=== PATIENT | female | born 1990 | race African-American/Black ===

== ENCOUNTER 2017-01-16 10:35 | Inpatient (IN) | payer OTHER ==
[2017-01-16] MEDS ORDERED: AMPICILLIN - 100 ML IVPB ONE (16:05)
[2017-01-16] MEDS ORDERED: DEXTROSE 5%-LACTATED RINGERS 1,000 ML IV SCH (17:00)
[2017-01-16 17:47] LABS: BASOPHIL 0.2 % (0-2.0); EOSINOPHIL 0.9 % (0-4.5); MCH 29.7 pg (25.7-33.7); MCHC 32.6 g/dl (32.0-36.0); MEAN CELL VOLUME 90.9 fl (80-96); MEAN PLT VOLUME 7.7 fl (7.5-11.1); NEUTROPHILS 65.6 % (42.8-82.8); PLATELET COUNT 291 K/MM3 (134-434); RDW 13.5 % (11.6-15.6); WHITE BLOOD COUNT 10.3 K/mm3 (4.0-10.0)
--- NOTE | 2017-01-16 18:09 | HP ---
Past Medical History - Primary Care Physician PCP:: Alonzo Middleton - Admission Chief Complaint: 39.4 weeks, labor History of Present Illness: 26 yo f edc by sono 01/19/17 39.4 weeks, in labor, cx 2 cm 75 vx -3 mi, fhr cat 1 , contraction irregular History Source: Patient Limitations to Obtaining History: No Limitations - Past Medical History ...: 2 ...Para: 1 ...Term: 1 ...LMP: 04/29/16 ... Weeks Gestation by Dates: 37.3 ...EDC by Dates: 02/03/17 ...EDC by Sono: 01/19/17 Additional OB History: 2013 no complication Heme/Onc: Yes: Anemia - Past Surgical History Past Surgical History: Yes: None Hx Myomectomy: No Hx Transabdominal Cerclage: No - Smoking History Smoking history: Never smoked Have you smoked in the past 12 months: No - Alcohol/Substance Use Hx Alcohol Use: No History of Substance Use: reports: None - Social History History of Recent Travel: No Home Medications - Allergies Allergies/Adverse Reactions: Allergies Allergy/AdvReac Type Severity Reaction Status Date / Time No Known Allergies Allergy Verified 08/12/14 13:19 - Home Medications Home Medications: Ambulatory Orders Ferrous Sulfate [Feosol] 325 mg PO BID 08/12/14 Vit No.130/Iron/FA [ Tablet] 1 each PO DAILY 08/12/14 Review of Systems - Review of Systems Constitutional: reports: No Symptoms Eyes: reports: No Symptoms HENT: reports: No Symptoms Neck: reports: No Symptoms Cardiovascular: reports: No Symptoms Respiratory: reports: No Symptoms Gastrointestinal: reports: No Symptoms Genitourinary: reports: No Symptoms Breasts: reports: No Symptoms Reported Musculoskeletal: reports: No Symptoms Neurological: reports: No Symptoms Endocrine: reports: No Symptoms Hematology/Lymphatic: reports: No Symptoms Psychiatric: reports: No Symptoms Physical Exam - Maternity Vital Signs: Vital Signs Temperature 97.8 F 01/16/17 17:00 Pulse Rate 88 01/16/17 18:00 Respiratory Rate 20 01/16/17 18:00 Blood Pressure 134/80 01/16/17 18:00 O2 Sat by Pulse Oximetry (%) Constitutional: Yes: Well Nourished, No Distress, Calm Eyes: Yes: WNL, Conjunctiva Clear, EOM Intact HENT: Yes: WNL, Atraumatic, Normocephalic Neck: Yes: WNL, Supple, Trachea Midline Cardiovascular: Yes: WNL, Regular Rate and Rhythm Breast(s): Yes: WNL - Abdominal Exam/OB Fundal Height: 40 Number of Fetuses: Single Presentation: Vertex Contractions: Yes Regularity: Irregular Intensity: Mod/Strong Monitor Mode: External Heart Rate Location: [facility] Category: I Accelerations: Non-Uniform Decelerations: None - Vaginal Exam/OB Vaginal Bleediing: No Speculum Exam: No Dilatation (cm): 2 cm Effacement (%): 75 Amniotic Membrane Status: Bulging Presentation: Vertex/Position Station: -3 - Physical Exam Musculoskeletal: Yes: WNL Edema: Yes Edema: LLE: Trace, RLE: Trace Deep Tendon Reflex Grade: Normal +2 - Labs Lab Results: CBC, BMP 01/16/17 16:40 Hemorrhage Risk Assessment - Risk Factors Medium Risk Factors: Yes: Obesity (BMI >40) Risk Score: 1 Risk Level: Medium Risk Problem List - Problems (1) 39 weeks gestation of Code(s): Z3A.39 - 39 WEEKS GESTATION OF (2) Labor established Code(s): MAL9656 - Assessment/Plan plan admit , fhm, if contraction not regular advised pitocin stimulation
[2017-01-16] MEDS ORDERED: BUTORPHANOL TARTRATE 1 MG/ML VIAL IVPUSH ONE (18:10)
[2017-01-16 18:12] LABS: INR 0.88 (0.82-1.09); PROTHROMBIN TIME (PATIENT) 9.7 SEC (9.98-11.88)
[2017-01-16 18:41] LABS: COCKROFT - GAULT 208.913; CREATININE 0.6 mg/dL (0.55-1.02)
[2017-01-16] MEDS: AMPICILLIN - 100 ML IVPB SCH (20:15)
[2017-01-17] MEDS: AMPICILLIN - 100 ML IVPB SCH (00:15)
[2017-01-17] MEDS ORDERED: AMPICILLIN - 100 ML IVPB SCH (05:00)
[2017-01-17] MEDS ORDERED: ELECTROLYTE-148 SOLN 1,000 ML IV SCH (08:30)
--- NOTE | 2017-01-17 08:48 | PN ---
Progress Note (short form) - Note Progress Note: 820 am srom,, meconium amniotic \, variable decel cx 3 cm 80 vx -3 , advised c/s Problem List - Problems (1) 39 weeks gestation of Code(s): Z3A.39 - 39 WEEKS GESTATION OF (2) Labor established Code(s): YBG8452 -
[2017-01-17 10:22] LABS: ARTERIAL BLOOD GAS BASE EXCESS -1.3 meq/l (-2-2); ARTERIAL BLOOD GAS HCO3 26.4 meq/L (22-26); ARTERIAL BLOOD GAS pH 7.27 (7.35-7.45)
[2017-01-17 10:25] LABS: ARTERIAL BLOOD GAS BASE EXCESS -2.1 meq/l (-2-2); ARTERIAL BLOOD GAS HCO3 24.4 meq/L (22-26); ARTERIAL BLOOD GAS pH 7.31 (7.35-7.45)
[2017-01-17 10:28] LABS: PT. ON O2? NO
[2017-01-17 10:29] LABS: ARTERIAL BLD GAS O2 SATURATION 14.2 % (90-98.9); ARTERIAL BLOOD GAS PO2 12.2 mmHg (80-100)
[2017-01-17 10:30] LABS: ARTERIAL BLOOD GAS PO2 35.9 mmHg (80-100); PT. ON O2? NO
[2017-01-17 10:31] LABS: ARTERIAL BLD GAS O2 SATURATION 73.2 % (90-98.9)
[2017-01-17] MEDS ORDERED: ONDANSETRON 4 MG/2 ML VIAL IVPB PRN (10:41)
[2017-01-17] MEDS ORDERED: diphenhydrAMINE HCL 25 MG CAPSULE (FP) PO PRN (10:47)
[2017-01-17] MEDS ORDERED: METHYLERGONOVINE MALEATE 0.2 MG/1 ML AMP IM PRN (10:47)
[2017-01-17] MEDS ORDERED: WITCH HAZEL 50% (TUCKS) 40 PAD/JAR PAD TP PRN (10:47)
[2017-01-17] MEDS ORDERED: oxyCODONE HCL 5 MG TABLET PO PRN ×2 (10:47)
[2017-01-17] MEDS ORDERED: BENZOCAINE 20% 57 GM BOTTLE TP PRN (10:47)
[2017-01-17] MEDS ORDERED: IBUPROFEN 600 MG TABLET (FP) PO PRN (10:47)
[2017-01-17] MEDS ORDERED: BENZOCAINE 28 GM HEMORRHOIDAL OINTMENT PR PRN (10:47)
[2017-01-17] MEDS: IBUPROFEN 800 MG/8 ML IJ IVPB PRN ×2 (10:50→20:49)
[2017-01-17] MEDS ORDERED: DEXTROSE 5%-LACTATED RINGERS 1,000 ML IV SCH (11:00)
[2017-01-17] MEDS ORDERED: OXYTOCIN 20 UNITS in 0.9% NS 1,000 ML IV SCH (11:00)
[2017-01-17 11:47] LABS: ARTERIAL BLOOD GAS BASE EXCESS -7.9 meq/l (-2-2)
[2017-01-17 11:49] LABS: PT. ON O2? NO
[2017-01-17 11:50] LABS: ARTERIAL BLOOD GAS PO2 19.1 mmHg (80-100); ARTERIAL BLOOD GAS pH 7.19 (7.35-7.45)
[2017-01-17] MEDS ORDERED: ACETAMINOPHEN 1000 MG/100 ML VIAL (NON FORMULARY) IVPB PRN (11:50)
[2017-01-17 11:55] VITALS: BMI 34.7
[2017-01-17] MEDS ORDERED: CEFAZOLIN (PRE-DOCKED) 50 ML IVPB ONE ×2 (17:39→20:16)
[2017-01-17] MEDS: CEFAZOLIN 1 GM/D5W 50 ML IVPB SCH (17:46)
[2017-01-17] MEDS: FERROUS SO4 325 MG TABLET (FP) PO SCH (21:08)
[2017-01-18] MEDS: CEFAZOLIN 1 GM/D5W 50 ML IVPB SCH (01:08)
[2017-01-18] MEDS: IBUPROFEN 600 MG TABLET (FP) PO PRN ×3 (07:25→21:15)
[2017-01-18] MEDS: ACETAMINOPHEN 325 MG TABLET (FP) PO PRN ×3 (07:26→21:16)
[2017-01-18] MEDS: SIMETHICONE 80 MG TAB.CHEW (FP) PO PRN ×3 (07:27→21:15)
[2017-01-18 08:18] LABS: BASOPHIL 0.6 % (0-2.0); EOSINOPHIL 0.8 % (0-4.5); MCH 30.7 pg (25.7-33.7); MEAN PLT VOLUME 7.8 fl (7.5-11.1); NEUTROPHILS 66.1 % (42.8-82.8); PLATELET COUNT 215 K/MM3 (134-434); RDW 13.7 % (11.6-15.6); WHITE BLOOD COUNT 12.6 K/mm3 (4.0-10.0)
[2017-01-18] MEDS: FERROUS SO4 325 MG TABLET (FP) PO SCH ×2 (09:23→21:15)
--- NOTE | 2017-01-18 09:23 | PN ---
Progress Note (short form) - Note Progress Note: pod 1 doing well, no excess vaginal bleeding , Current Medications Generic Name Dose Route Start Last Admin Trade Name Freq PRN Reason Stop Dose Admin Acetaminophen 650 mg 01/17/17 10:41 01/18/17 07:26 Tylenol - PO 650 mg Q4H PRN Administration FEVER OR PAIN Benzocaine 1 spray 01/17/17 10:47 Americaine 20% Tunas - TP PRN PRN PAIN Benzocaine 1 applic 01/17/17 10:47 Americaine Ointment - MS PRN PRN PAIN Bisacodyl 10 mg 01/18/17 10:47 Dulcolax Suppository - RC PRN PRN CONSTIPATION Diphenhydramine HCl 25 mg 01/17/17 10:41 Benadryl Injection - IVPUSH Q4H PRN Pruritis Diphenhydramine HCl 25 mg 01/17/17 10:47 Benadryl - PO Q8H PRN FOR ITCHING Ferrous Sulfate 325 mg 01/17/17 22:00 01/17/17 21:08 Feosol - PO Not Given BID RAMANDEEP Dextrose/Lactated Ringer's 1,000 mls @ 125 mls/hr 01/17/17 11:00 D5-Lr - IV ASDIR RAMANDEEP Ibuprofen 600 mg 01/17/17 10:41 01/18/17 07:25 Motrin - PO 600 mg Q4H PRN Administration PAIN Ibuprofen 600 mg 01/17/17 10:47 Motrin - PO Q4H PRN PAIN Methylergonovine Maleate 0.2 mg 01/17/17 10:47 Methergine Injection - IM Q4H PRN EXCESSIVE BLEEDING Oxycodone HCl 5 mg 01/17/17 10:47 Roxicodone - PO Q4H PRN PAIN LEVEL 1-5 Oxycodone HCl 10 mg 01/17/17 10:47 Roxicodone - PO Q4H PRN PAIN LEVEL 6-10 Multivit/Folic Acid/Iron 1 tab 01/18/17 10:00 Vitamins (Sjr) - PO DAILY RAMANDEEP Senna/Docusate Sodium 1 tablet 01/19/17 22:00 Pericolace - PO HS PRN CONSTIPATION Simethicone 80 mg 01/17/17 10:47 01/18/17 07:27 Mylicon - PO 80 mg Q4H PRN Administration GAS Witch Sheri/Glycerin 1 pad 01/17/17 10:47 Tucks Pads - TP PRN PRN PAIN CBC, BMP 01/18/17 07:00 01/16/17 16:40 abdomen soft, no distension, no cva incision dry, clean no calf tenderness no excess vaginal bleeding plan ambulate, advance diet, iron, vit Problem List - Problems (1) 39 weeks gestation of Code(s): Z3A.39 - 39 WEEKS GESTATION OF (2) Labor established Code(s): EWG4084 -
[2017-01-18] MEDS: PRENATAL VITAMINS W/ FOLIC ACID TABLET (FP) PO SCH (09:24)
[2017-01-18] MEDS ORDERED: BISACODYL 10 MG SUPP.RECT RC PRN (10:47)
--- NOTE | 2017-01-18 11:11 | PN ---
Progress Note (short form) - Note Progress Note: Anesthesia post op note. S/P in spinal, POD#1. Pat seen and examined, VSS. No apparentpost anesthesia complications. Signed off.
[2017-01-18] MEDS: SENNOSIDES/DOCUSATE COMBO (SENNA PLUS) TABLET (UD) PO PRN (21:15)
--- NOTE | 2017-01-18 23:53 | OP ---
DATE OF OPERATION: 01/17/2017 PREOPERATIVE DIAGNOSIS: Term labor, ruptured membranes, meconium amniotic fluid, and variable deceleration. POSTOPERATIVE DIAGNOSIS: Term labor, ruptured membranes, meconium amniotic fluid, and variable deceleration. PROCEDURE: Primary low segment transverse section. SURGEON: Petr Juan M.D. MARKETING SALES SUPERVISOR: ANESTHESIA: Spinal. ANESTHESIOLOGIST: Shar Lucero M.D. ESTIMATED BLOOD LOSS: 500 mL. OPERATION: Patient was taken to operating room with adequate epidural anesthesia. Abdomen and perineum were prepped and draped. Pfannenstiel abdominal skin incision was made. Abdominal wall was cut layer by layer until the peritoneum was exposed and incised. Upon entering the abdominal cavity, the lower uterine segment was identified, and uterovesical fold of the peritoneum was established. The bladder was pushed down. Then with the lower blade of the Marlin retractor in the pelvis, a low transverse uterine incision was made. Amniotic sac was entered. Meconium amniotic fluid. Head delivered. Nasopharynx was suctioned. A live baby was delivered without any difficulty. Placenta was delivered manually. Uterine cavity was cleaned of all remaining tissue. Uterine incision was closed in 2 layers, the 1st layer with 0 Biosyn continuous suture, the 2nd layer with 0 Biosyn imbricating the 1st layer. Bladder flap was closed with 0 Biosyn continuous suture. Both tubes and ovaries were checked and were normal. No active bleeding was seen. All the lap, sponge, and instrument counts were correct. Peritoneum was closed with 0 Biosyn continuous suture. Muscles were brought together interrupted suture with 0 Biosyn. Fascia was closed with 0 Biosyn continuous sutures. Subcutaneous fat with interrupted sutures 0 Biosyn, and the skin was closed with ghulam. The patient tolerated the procedure well and left the OR in good condition. PETR JUAN M.D. [id number]
--- NOTE | 2017-01-19 08:06 | PN ---
Progress Note (short form) - Note Progress Note: pod 2 doing well, ambulating, passing gas CBC, BMP 01/18/17 07:00 01/16/17 16:40 Last Vital Signs Temp Pulse Resp BP Pulse Ox 98.1 F 96 H 20 131/84 01/18/17 22:00 01/18/17 22:00 01/18/17 22:00 01/18/17 22:00 abdomen soft, no distension, no cav incision dry, clean no calf tenderness plan ambulate, cbcin am iron vit Problem List - Problems (1) 39 weeks gestation of Code(s): Z3A.39 - 39 WEEKS GESTATION OF (2) Labor established Code(s): HZS5822 -
[2017-01-19] MEDS: PRENATAL VITAMINS W/ FOLIC ACID TABLET (FP) PO SCH (09:26)
[2017-01-19] MEDS: FERROUS SO4 325 MG TABLET (FP) PO SCH ×2 (09:26→21:14)
[2017-01-19] MEDS: SIMETHICONE 80 MG TAB.CHEW (FP) PO PRN ×2 (13:26→20:25)
[2017-01-19] MEDS: ACETAMINOPHEN 325 MG TABLET (FP) PO PRN ×2 (13:26→20:26)
[2017-01-19] MEDS: IBUPROFEN 600 MG TABLET (FP) PO PRN ×2 (13:27→20:25)
[2017-01-19] MEDS: SENNOSIDES/DOCUSATE COMBO (SENNA PLUS) TABLET (UD) PO PRN (20:25)
--- NOTE | 2017-01-20 05:36 | PN ---
Post Progress Note - Subjective Subjective: 26 yo Para 3, status post seen and evaluated. Doing well, no complaints. Type of Delivery: Primary C/S Vital Signs: Vital Signs Temperature 98.0 F 01/19/17 20:28 Pulse Rate 92 H 01/19/17 20:28 Respiratory Rate 20 01/19/17 20:28 Blood Pressure 119/74 01/19/17 20:28 O2 Sat by Pulse Oximetry (%) Breast Exam: Yes: Soft Uterus: Yes: Fundus Firm Incision: Yes: [place] intact Abdomen/GI: Yes: Abdomen soft, Tolerating PO Lochia: Yes: Rubra Lochia, amount: Moderate Extremities: Yes: Calves non-tender Perineum: Yes: Intact Activity: Ambulating - Labs Labs: CBC WBC 12.6 K/mm3 (4.0-10.0) H 01/18/17 07:00 RBC 3.17 M/mm3 (3.60-5.2) L D 01/18/17 07:00 Hgb 9.7 GM/dL (10.7-15.3) L D 01/18/17 07:00 Hct 29.5 % (32.4-45.2) L D 01/18/17 07:00 MCV 93.0 fl (80-96) 01/18/17 07:00 MCHC 33.0 g/dl (32.0-36.0) 01/18/17 07:00 RDW 13.7 % (11.6-15.6) 01/18/17 07:00 Plt Count 215 K/MM3 (134-434) D 01/18/17 07:00 MPV 7.8 fl (7.5-11.1) 01/18/17 07:00 Neutrophils % 66.1 % (42.8-82.8) 01/18/17 07:00 Lymphocytes % 23.8 % (8-40) 01/18/17 07:00 Monocytes % 8.7 % (3.8-10.2) 01/18/17 07:00 Eosinophils % 0.8 % (0-4.5) 01/18/17 07:00 Basophils % 0.6 % (0-2.0) 01/18/17 07:00 Problem List - Problems (1) Status post primary low transverse section Code(s): Z98.891 - HISTORY OF UTERINE SCAR FROM PREVIOUS SURGERY Assessment/Plan Status post Stable Continue routine Post op care
[2017-01-20 08:34] LABS: BASOPHIL 0.6 % (0-2.0); EOSINOPHIL 2.3 % (0-4.5); MCH 30.6 pg (25.7-33.7); MCHC 33.2 g/dl (32.0-36.0); MEAN CELL VOLUME 92.2 fl (80-96); MEAN PLT VOLUME 6.9 fl (7.5-11.1); NEUTROPHILS 57.2 % (42.8-82.8); PLATELET COUNT 265 K/MM3 (134-434); WHITE BLOOD COUNT 8.5 K/mm3 (4.0-10.0)
[2017-01-20] MEDS: PRENATAL VITAMINS W/ FOLIC ACID TABLET (FP) PO SCH (09:49)
[2017-01-20] MEDS: FERROUS SO4 325 MG TABLET (FP) PO SCH ×2 (09:49→21:45)
[2017-01-20] MEDS: IBUPROFEN 600 MG TABLET (FP) PO PRN (16:51)
[2017-01-20] MEDS: ACETAMINOPHEN 325 MG TABLET (FP) PO PRN (16:52)
[2017-01-20] MEDS: SIMETHICONE 80 MG TAB.CHEW (FP) PO PRN (16:53)
--- NOTE | 2017-01-21 08:23 | PN ---
Post Progress Note - Subjective Subjective: no complain Post Day: 4 Type of Delivery: Primary C/S Vital Signs: Vital Signs Temperature 97.7 F 01/20/17 22:00 Pulse Rate 87 01/20/17 22:00 Respiratory Rate 20 01/20/17 22:00 Blood Pressure 135/88 01/20/17 22:00 O2 Sat by Pulse Oximetry (%) Breast Exam: Yes: Soft, Other (attempting BF ). No: Engorged Uterus: Yes: Fundus Firm, Fundus below umbilicus, Non-tender Incision: No: [place] intact (ghulam removed , steri strips applied ), Redness , Oozing Abdomen/GI: Yes: Abdomen soft, Passing flatus, Tolerating PO (diet ). No: Abdominal Distention, Tender Lochia: Yes: Rubra Lochia, amount: Moderate Extremities: Yes: Calves non-tender, Edema Perineum: Yes: Intact Activity: Ambulating - Labs Labs: CBC WBC 8.5 K/mm3 (4.0-10.0) D 01/20/17 07:30 RBC 2.72 M/mm3 (3.60-5.2) L 01/20/17 07:30 Hgb 8.3 GM/dL (10.7-15.3) L D 01/20/17 07:30 Hct 25.1 % (32.4-45.2) L 01/20/17 07:30 MCV 92.2 fl (80-96) 01/20/17 07:30 MCHC 33.2 g/dl (32.0-36.0) 01/20/17 07:30 RDW 14.0 % (11.6-15.6) 01/20/17 07:30 Plt Count 265 K/MM3 (134-434) D 01/20/17 07:30 MPV 6.9 fl (7.5-11.1) L D 01/20/17 07:30 Neutrophils % 57.2 % (42.8-82.8) 01/20/17 07:30 Lymphocytes % 32.8 % (8-40) D 01/20/17 07:30 Monocytes % 7.1 % (3.8-10.2) 01/20/17 07:30 Eosinophils % 2.3 % (0-4.5) D 01/20/17 07:30 Basophils % 0.6 % (0-2.0) 01/20/17 07:30 Assessment/Plan anemia s/p c/section day #4 stable plan anemia counselled discharge today
[2017-01-21 08:49] VITALS: BP 127/86; PULSE 90; TEMP 98.2
[2017-01-21] MEDS: ACETAMINOPHEN 325 MG TABLET (FP) PO PRN (09:20)
[2017-01-21] MEDS: FERROUS SO4 325 MG TABLET (FP) PO SCH (09:20)
[2017-01-21] MEDS: PRENATAL VITAMINS W/ FOLIC ACID TABLET (FP) PO SCH (09:20)
[2017-01-21] MEDS: IBUPROFEN 600 MG TABLET (FP) PO PRN (09:21)
--- NOTE | 2017-01-21 09:49 | DS ---
Physical Exam-TOOL CHECKER Vital Signs: Vital Signs Temperature 98.2 F 01/21/17 08:46 Pulse Rate 90 01/21/17 08:46 Respiratory Rate 20 01/21/17 08:46 Blood Pressure 127/86 01/21/17 08:46 O2 Sat by Pulse Oximetry (%) Constitutional: Yes: Well Nourished, No Distress, Calm Eyes: Yes: WNL, Conjunctiva Clear, EOM Intact HENT: Yes: WNL, Atraumatic, Normocephalic Neck: Yes: WNL, Supple, Trachea Midline Cardiovascular: Yes: WNL, Regular Rate and Rhythm Respiratory: Yes: WNL, Regular, CTA Bilaterally Gastrointestinal: Yes: WNL ...Rectal Exam: Yes: WNL Renal/: Yes: WNL External Genitalia: Yes: Normal ....Post : Yes: Uterus firm, Uterus non-tender, Slight lochia rubra Breast(s): Yes: WNL Musculoskeletal: Yes: WNL Extremities: Yes: WNL Edema: No Integumentary: Yes: WNL Wound/Incision: Yes: Clean/Dry, Well Approximated, [place] Removed Neurological: Yes: WNL, Alert, Oriented ...Motor Strength: WNL Psychiatric: Yes: WNL, Alert, Oriented Labs: CBC, BMP 01/20/17 07:30 01/16/17 16:40 Delivery - Delivery Section: Primary, Low Flap Transverse (no complication) Type of Anesthesia: Spinal Episiotomy/Laceration: None EBL (cc): 700 Delivery, Single - Stages of Labor Date 1st Stage Initiatied: 01/16/17 Time 1st Stage Initiated: 06:00 Date of Delivery: 01/17/17 Time of Delivery: 09:57 Time Placenta Delivered: 10:00 Placenta: Yes: Expressed - Condition of Dispatcher Electric Power/Photocopy Operator Present: Yes Name: Jocelyn Lau Gender: Male Weight: 8 lb 6 oz Position: Right, OP Total Hours ROM (Hrs/Mins): 1hr 33 min - 1 Minute Total Score: 9 5 Minutes Total Score: 9 - Jarrell Feeding Plan Initial Plan: Elected not to breastfeed exclusively throughout hospitalization Discharge Summary Reason For Visit: LABOR Current Active Problems Labor established (Acute) Status post primary low transverse section (Acute) Procedures: Principal: primary lst c/s - Instructions Diet, Activity, Other Instructions: Post Instructions DIET: Continue good diet high in protein, calcium, and iron rich foods. Drink at least eight (8) glasses of water daily in addition to other fluids. ___ Regular diet ___ LoCarb/Low Calorie Diet ___ Diabetic Diet MEDICATIONS: Continue vitamins and iron as previously directed. Motrin and Tylenol may be taken for minor discomfort. ACTIVITY: Mild to moderate exercise may be started in two (2) weeks. Take frequent rest periods. Resume normal activity after six (6) week check up. WOUND CARE OF OPERATIVE SITE: Continue use of perineal bottle until vaginal discharge stops. Keep area clean. Shower daily. Keep abdominal wound dry. Report any drainage or redness to physician. Tub baths, tampons and douches are not permitted for 6 weeks. ____ Breast feeding ___ Bottle feeding BREAST CARE: (For those that are not ): If engorgement occurs: Wear tight fitting bra. Take Tylenol or Motrin for pain. Apply cold packs (ice in bags to each breast ) FAMILY PLANNING: There are many control alternatives to pursue and they should be discussed at your first office visit. You may resume sexual activity after your six (6) week check up. (Remember, is not a contraceptive) NEXT PHYSICIAN APPOINTMENT: Be certain to call for a one (1) week appointment, unless otherwise directed. Call Clinic or got to Emergency Dept if you have any of the following: Heavy vaginal bleeding Painful urination Leg pain Unusual odor noted to vaginal bleeding High fever Red streaking noted on breast Referrals: Alonzo Middleton MD [Staff Physician] - - Home Medications Comprehensive Discharge Medication List: Ambulatory Orders Vit No.130/Iron/FA [ Tablet] 1 each PO DAILY 08/12/14 Acetaminophen [Tylenol .Regular Strength -] 650 mg PO Q4H PRN #0 tablet Ferrous Sulfate [Feosol] 325 mg PO BID #60 tab 01/21/17 Ibuprofen [Motrin -] 600 mg PO Q4H PRN #30 tablet 01/21/17
--- NOTE | 2017-01-23 14:47 | PATH ---
Surgical Pathology Report Patient Name: [facility] MARY [facility]. Rec. #: [id number] /Age/Gender: 1990 (Age: 26) / F Account: [id number] Location: [facility] OBS/POLISHER SAND Taken: 01/17/2017 Received: 01/19/2017 Reported: 01/23/2017 Physicians: Alonzo Middleton M.D. Specimen(s) Received PLACENTA Clinical History , 39.5 gestational weeks, GBS positive, 2014 C/section Final Diagnosis PLACENTA, DELIVERY: FOCALLY DISRUPTED, SMALL (<400 GM), THIRD TRIMESTER PLACENTA WITH MODERTE PREVILLOUS, PERIVILLOUS, AND PRECHORIONIC FIBRIN DEPOSITION, FOCAL CALCIFICATIONS, THREE VESSEL UMBILICAL CORD, AND UNREMARKABLE PLACENTAL MEMBRANES. Electronically Signed Juancarlos Dent M.D. Gross Description The specimen is received fresh, labeled "placenta" and is a 390 gram, 17.0 x 15.0 x 2.1 cm placenta with attached membranes and umbilical cord. The attached membranes are leon, translucent with focal opacities and insert marginally. The umbilical cord measures 23 cm in length and averages 1.3 cm in diameter. The cord inserts eccentrically, 2.5 cm to the nearest margin. No true knots or strictures are identified. Cut surface of the umbilical cord reveals 3 vessels. The surface is riddle-blue with fibrin deposition and appropriate caliber vessels. The maternal surface is red-brown with focal defects. Sectioning reveals red-brown, spongy parenchyma. No focal lesions are identified. Geological Science Teacher sections are submitted in three cassettes as follows: 1- membrane rolls and umbilical cord; 2-3- full thickness sections of placenta. /01/22/2017 [facility]01/22/2017
== END 2017-01-21 12:35 | disposition home or self-care (01) | DRG 540 ==
LOC: JDEL 10:35 → JLDR 16:00 → J3W 01-17 13:01
PROVIDERS: ADMIT Obstetrics & Gynecology; ATTEND Obstetrics & Gynecology
PROC: 10D00Z1 Extraction of Products of Conception, Low, Open Approach (ICD-10-PCS; principal; 2017-01-17)
DX: O76 Abnormality in fetal heart rate and rhythm complicating labor and delivery (principal); O77.0 Labor and delivery complicated by meconium in amniotic fluid; O99.02 Anemia complicating childbirth; D64.9 Anemia, unspecified; O99.214 Obesity complicating childbirth; Z3A.39 39 weeks gestation of pregnancy; Z37.0 Single live birth
CPT/HCPCS: 36415; 36600; 80048; 82803; 85025; 85610; 85730; 86593; 86850; 86900; 86901; 88307-TC

== ENCOUNTER 2019-10-13 19:00 | Emergency (ER) | payer OTHER ==
[2019-10-13 19:29] VITALS: PULSE 68; TEMP 98.4; BMI 34.1
--- NOTE | 2019-10-13 19:55 | PDOC ---
History of Present Illness - General Chief Complaint: Vaginal Bleeding Stated Complaint: VAGINAL BLEEDING Time Seen by Provider: 10/13/19 19:55 - History of Present Illness Initial Comments: 10/13/19 22:45 29 yo F, , presenting with vaginal bleeding. Patient had blood and urine tests confirming 1 week ago, believes that she is about 4 weeks along. Yesterday, patient had painless episode of scant vaginal bleeding which self- resolved, did not require pads. No bleeding today. Patient went to OBGYN today, who told her to come to the ER due to concern for vaginal bleeding yesterday. Patient currently entirely asymptomatic. Past History - Past Medical History Allergies/Adverse Reactions: Allergies Allergy/AdvReac Type Severity Reaction Status Date / Time No Known Allergies Allergy Verified 10/13/19 19:29 Home Medications: Ambulatory Orders NK [No Known Home Medication] 10/13/19 Asthma: No Cancer: No Cardiac Disorders: No COPD: No Diabetes: No HTN: No Seizures: No Thyroid Disease: No - Psycho Social/Smoking Cessation Hx Smoking History: Never smoked Have you smoked in the past 12 months: No Information on smoking cessation initiated: No Hx Alcohol Use: Yes Drug/Substance Use Hx: No Hx Substance Use Treatment: No Review of Systems - Review of Systems Comments:: 10/13/19 22:44 GENERAL/CONSTITUTIONAL: denies fever, chills, diaphoresis, generalized weakness , malaise, loss of appetite, weight change HEAD, EYES, EARS, NOSE AND THROAT: denies rhinorrhea, nasal congestion, throat pain, throat swelling, difficulty swallowing, mouth swelling, ear pain, eye pain , visual changes NEUROLOGIC: denies headache, focal weakness or paresthesias, dizziness, unsteady gait, seizure, mental status changes, bladder or bowel incontinence CARDIOVASCULAR: denies chest pain, syncope, palpitations, irregular heart rate, lightheadedness, peripheral edema RESPIRATORY: denies cough, shortness of breath, dyspnea with exertion, orthopnea , wheezing, stridor, hemoptysis GASTROINTESTINAL: denies abdominal pain, abdominal distension, nausea, vomiting , diarrhea, constipation, melena, hematochezia GENITOURINARY: endorses vaginal bleeding which has since resolved. Denies dysuria, frequency, urgency, hesitancy, hematuria, flank pain, genital pain MUSCULOSKELETAL: denies myalgia, arthralgia, joint swelling, back pain, neck pain SKIN: denies rash, itching, pallor HEMATOLOGIC/IMMUNOLOGIC: denies easy bleeding, easy bruising, lymphadenopathy, frequent infections ENDOCRINE: denies unexplained weight gain, unexplained weight loss, heat intolerance, cold intolerance PSYCHIATRIC: denies anxiety, depression, suicidal or homicidal ideation, hallucinations. *Physical Exam - Vital Signs Last Vital Signs Temp Pulse Resp BP Pulse Ox 98.4 F 68 14 106/62 100 10/13/19 19:26 10/13/19 19:26 10/13/19 19:26 10/13/19 19:26 10/13/19 19:26 - Physical Exam 10/13/19 22:44 GENERAL: Awake, alert, and fully oriented, in no acute distress. HEAD: Normal with no signs of trauma. EYES: Pupils equal, round and reactive to light, extraocular movements intact, sclera anicteric, conjunctiva clear. No lid lag. EARS, NOSE, THROAT: Ears normal, nares patent, oropharynx clear without exudates. Dry mucous membranes. NECK: Normal range of motion, supple without lymphadenopathy, JVD, or masses. LUNGS: Breath sounds equal, clear to auscultation bilaterally. No wheezes, and no crackles. No accessory muscle use. HEART: Regular rate and rhythm, normal S1 and S2 without murmur, rub or gallop. ABDOMEN: Soft, nontender, non-distended, normoactive bowel sounds, negative guarding, negative rebound, no masses. : fingertip os, meade-brown discharge consistent with old clots, no CMT or adnexal tenderness MUSCULOSKELETAL: Normal range of motion at all joints. No bony deformities or tenderness. No CVA tenderness. UPPER EXTREMITIES: 2+ pulses, warm, well-perfused. No cyanosis. No clubbing. Cap refill <2 seconds. No peripheral edema. LOWER EXTREMITIES: 2+ pulses, warm, well-perfused. No calf tenderness. No peripheral edema. NEUROLOGICAL: Cranial nerves II-XII intact. Normal speech. Normal gait. PSYCHIATRIC: Cooperative. Good eye contact. Appropriate mood and affect. SKIN: Warm, dry, normal turgor, no rashes or lesions noted. ED Treatment Course - LABORATORY CBC & Chemistry Diagram: 10/13/19 21:05 10/14/19 00:05 Medical Decision Making - Medical Decision Making 10/13/19 19:43 Concern for early , possible . - CBC, CMP - T+S - beta hCG - UA/UC/u preg - TVUS 10/14/19 00:47 TVUS with IUP at 6 weeks 2 days without cardiac movement, highly concerning for failed . Patient informed. Pending labs, will likely dc for further outpatient follow up. 10/14/19 02:07 Patient signed out to Dr[address] Chirinos. Will f/u beta-hCG, dc for further outpatient follow-up. Discharge - Discharge Information Problems reviewed: Yes Clinical Impression/Diagnosis: Condition: Stable Disposition: HOME - Follow up/Referral Referrals: Alonzo Middleton MD [Staff Physician] - Freddy Woods MD [Staff Physician] - - Patient Discharge Instructions Patient Printed Discharge Instructions: DI for Miscarriage Additional Instructions: You were seen with vaginal bleeding. Your imaging is concerning for a failed . It is very important that you follow up with OBGYN. The numbers are included in this paperwork. Additionally, follow up with your primary care doctor within one week. Return to the ED if you develop worsening symptoms. - Post Discharge Activity
[2019-10-13] MEDS ORDERED: ACETAMINOPHEN 1000 MG/100 ML VIAL (NON FORMULARY) IVPB ONE (21:26)
[2019-10-13 21:29] LABS: BASO % 1.3 % (0-2.0); EOS % 1.3 % (0-4.5); HEMATOCRIT 39.4 % (32.4-45.2); LYMPH % 42.8 % (8-40); MCH 30.6 pg (25.7-33.7); MCHC 33.1 g/dl (32.0-36.0); MEAN CELL VOLUME 92.5 fl (80-96); MEAN PLT VOLUME 7.7 fl (7.5-11.1); MONO % 5.4 % (3.8-10.2); NEUT % 49.2 % (42.8-82.8); PLATELET COUNT 333 K/MM3 (134-434); RBC 4.26 M/mm3 (3.60-5.2); WHITE BLOOD COUNT 9.2 K/mm3 (4.0-10.0)
[2019-10-13] MEDS ORDERED: ACETAMINOPHEN INJECTION 100 ML IVPB ONE (21:29)
--- NOTE | 2019-10-13 23:01 | PDOC ---
Documentation entered by Raven Vera SCRIBE, acting as scribe for Blanca Kwon DO. Blanca Kwon DO: This documentation has been prepared by the li, Raven Vera SCRIBE, under my direction and personally reviewed by me in its entirety. I confirm that the documentation accurately reflects all work, treatment, procedures, and medical decision making performed by me. Attending Attestation - Resident Resident Name: SilvaJuvencio - ED Attending Attestation I have performed the following: I have examined & evaluated the patient, The case was reviewed & discussed with the resident, I agree w/resident's findings & plan, Exceptions are as noted - HPI HPI: 10/13/19 22:01 Patient is a 29 year old 3-4 week female () with a significant medical history of anemia, who presents to the ED today with an episode of vaginal bleeding that happened yesterday. Patient said the bleeding was not associated with pain and stopped on its own. Patient stated the bleeding happened after she had intercourse. Patient quantified the bleeding as very little/less than a normal menstrual cycle. Patient has no current pain or bleeding. She states that she initially presented to her OBGYN who told her to come to the ED. - Physicial Exam PE: 10/13/19 22:07 Constitutional: Awake, alert, oriented. No acute distress. Head: Normocephalic. Atraumatic Eyes: PERRL. EOMI. Conjunctivae are not pale. ENT: Mucous membranes are moist and intact. Posterior pharynx without exudates or erythema. Uvula midline. Neck: Supple. Full ROM. No lymphadenopathy. Cardiovascular: Regular rate. Regular rhythm. S1, S2 regular. Distal pulses are 2+ and symmetric. Pulmonary/Chest: No evidence of respiratory distress. Clear to auscultation bilaterally No wheezing, rales or rhonchi. Abdominal: Soft and non-distended. There is no tenderness. No rebound, guarding or rigidity. No organomegaly. No palpable masses. Good bowel sounds. Back: No CVA tenderness. Musculoskeletal: No edema. No cyanosis. No clubbing. Full range of motion in all extremities. Nocalf tenderness. Radial/pedal pulses are intact and 2+ bilaterally Skin: Skin is warm and dry. No petechiae. No purpura. Neurological: Alert and oriented to person, place, and time. Cranial nerves II -XII are grossly intact. Normal speech. Strength is grossly symmetric. No sensory deficits. Psychiatric: Good eye contact. Normal interaction, affect and behavior. Pelvic: Refer to resident exam - Medical Decision Making 10/13/19 22:58 a/p: 29yo female at around 4 weeks gestation with vaginal bleeding yesterday after intercourse -pt without bleeding today -called her [facility] who told her to come to the ER for further eval -pt without abd pain -no dysuria -no other complaints -no prior episodes of complicated preg -will send labs, tvus -will monitor and reassess 10/14/19 00:38 Pelvic Ultrasound FINDINGS: Ultrasound :Uterus is anteverted and measures 8.3centimeters in length. There is a single live IUP with estimated gestational age of 6weeks and 2days. [place]-rump length is 5.4 mm in mean sac diameter is 11 mm. There is no cardiac motion. Findings are suspicious for failed . There is no subchorionic bleed. 11 mm posterior fundal calcified fibroid is noted. The right ovary measures 3.4centimeters in length and contains a 2.3 similar complex , possibly hemorrhagic cyst, but demonstrates normal flow. The left ovary measures 2.9centimeters in length and appears normal. There is no significant free fluid. Pelvic duplex: There is normal arterial and venous flow in both ovaries. IMPRESSION: Suspected failed , recommend follow-up ultrasound to confirm the diagnosis. 10/14/19 00:39 pt is O+ pt with crl consistent with 6w2d but no hr, suspect failed preg chem and beta pending 10/14/19 01:34 pt pending a beta 10/14/19 02:05 pt signed out to the oncoming ED physician pending beta and dc to home with [facility] follow up
[2019-10-13 23:04] LABS: HYALINE CASTS 1 /lpf (0-8); URINE APPEARANCE TURBID; URINE BACTERIA 51.4 /hpf (NEGATIVE); URINE BILIRUBIN NEGATIVE (NEGATIVE); URINE COLOR YELLOW; URINE GLUCOSE (UA) NEGATIVE (NEGATIVE); URINE KETONE NEGATIVE (NEGATIVE); URINE LEUK ESTERASE NEGATIVE (NEGATIVE); URINE NITRITE NEGATIVE (NEGATIVE); URINE PROTEIN NEGATIVE (NEGATIVE); URINE RBC 2 /hpf (0-4); URINE WBC 2 /hpf (0-5)
[2019-10-14 01:12] LABS: ALBUMIN 2.9 g/dl (3.4-5.0); BILIRUBIN,TOTAL 0.4 mg/dL (0.2-1); BLOOD UREA NITROGEN 13.5 mg/dL (7-18); CALCIUM 7.2 mg/dL (8.5-10.1); CREATININE 0.6 mg/dL (0.55-1.3); MAGNESIUM 1.5 mg/dL (1.8-2.4); PHOSPHOROUS 3.7 mg/dL (2.5-4.9); TOT PROT 6.2 g/dl (6.4-8.2)
[2019-10-14] MEDS ORDERED: MAGNESIUM SULF 50% (8.12 MEQ/2 ML-1 GM VIAL) IVPB ONE (01:22)
[2019-10-14] MEDS ORDERED: MAGNESIUM 1GM/D5W - 1 GM/100 ML IVPB IVPB ONE (01:26)
[2019-10-14] MEDS ORDERED: MAGNESIUM OXIDE 400 MG TABLET (FP) PO ONE (01:33)
--- NOTE | 2019-10-14 02:08 | PDOC ---
*Physical Exam - Vital Signs Last Vital Signs Temp Pulse Resp BP Pulse Ox 98.4 F 68 14 106/62 100 10/13/19 19:26 10/13/19 19:26 10/13/19 19:26 10/13/19 19:26 10/13/19 19:26 - Physical Exam Received sign out from day team. 29 yo F presenting to the emergency department with vaginal bleeding. At the time of sign out, the patient had a pending b-hcg. ED Treatment Course - LABORATORY CBC & Chemistry Diagram: 10/13/19 21:05 10/14/19 00:05 - ADDITIONAL ORDERS Additional order review: Laboratory Results 10/14/19 10/13/19 10/13/19 00:05 22:29 22:29 Sodium 143 Cancelled Potassium 4.0 Cancelled Chloride 115 H Cancelled Carbon Dioxide 20 L Cancelled Anion Gap 7 L Cancelled BUN 13.5 Cancelled Creatinine 0.6 Cancelled Est GFR (CKD-EPI)AfAm 140.77 Cancelled Est GFR (CKD-EPI)NonAf 121.46 Cancelled Random Glucose 76 Cancelled Calcium 7.2 L Cancelled Phosphorus 3.7 Magnesium 1.5 L Total Bilirubin 0.4 Cancelled AST 22 Cancelled ALT 17 Cancelled Alkaline Phosphatase 41 L Cancelled Total Protein 6.2 L Cancelled Albumin 2.9 L Cancelled Beta HCG, Quant Cancelled Urine Color Urine Appearance Urine pH Ur Specific Moore Urine Protein Urine Glucose (UA) Urine Ketones Urine Blood Urine Nitrite Urine Bilirubin Urine Urobilinogen Ur Leukocyte Esterase Urine WBC (Auto) Urine RBC (Auto) Urine Casts (Auto) U Epithel Cells (Auto) Urine Bacteria (Auto) Urine HCG, Qual Positive Blood Type Antibody Screen 10/13/19 10/13/19 10/13/19 21:05 21:05 20:45 Sodium Cancelled Potassium Cancelled Chloride Cancelled Carbon Dioxide Cancelled Anion Gap Cancelled BUN Cancelled Creatinine Cancelled Est GFR (CKD-EPI)AfAm Cancelled Est GFR (CKD-EPI)NonAf Cancelled Random Glucose Cancelled Calcium Cancelled Phosphorus Magnesium Total Bilirubin Cancelled AST Cancelled ALT Cancelled Alkaline Phosphatase Cancelled Total Protein Cancelled Albumin Cancelled Beta HCG, Quant Cancelled Urine Color Yellow Urine Appearance Turbid Urine pH 7.0 Ur Specific Moore 1.024 Urine Protein Negative Urine Glucose (UA) Negative Urine Ketones Negative Urine Blood Trace Urine Nitrite Negative Urine Bilirubin Negative Urine Urobilinogen 1.0 Ur Leukocyte Esterase Negative Urine WBC (Auto) 2 Urine RBC (Auto) 2 Urine Casts (Auto) 1 U Epithel Cells (Auto) 2.0 Urine Bacteria (Auto) 51.4 Urine HCG, Qual Blood Type O POSITIVE Antibody Screen Negative 10/13/19 21:05 RBC 4.26 MCV 92.5 MCHC 33.1 RDW 13.0 MPV 7.7 D Neutrophils % 49.2 Lymphocytes % 42.8 H D Monocytes % 5.4 Eosinophils % 1.3 Basophils % 1.3 - Medications Given in the ED: ED Medications Discontinued Medications Generic Name Dose Route Start Last Admin Trade Name Freq PRN Reason Stop Dose Admin Acetaminophen 1,000 mg 10/13/19 21:26 10/13/19 21:39 Ofirmev Injection - IVPB 10/13/19 21:27 1,000 mg ONCE ONE Administration Magnesium Sulfate 1 gm 10/14/19 01:22 10/14/19 01:30 Magnesium Sulfate IVPB 10/14/19 01:23 1 gm ONCE ONE Administration Medical Decision Making - Medical Decision Making TVUS shows 6 weeks 2 days IUP with no cardiac activity likely consistent with a inevitable miscarriage Laboratory Tests 10/13/19 10/13/19 10/13/19 20:45 21:05 21:05 WBC 9.2 RBC 4.26 Hgb 13.0 Hct 39.4 D MCV 92.5 MCH 30.6 MCHC 33.1 RDW 13.0 Plt Count 333 D MPV 7.7 D Absolute Neuts (auto) 4.5 Neutrophils % 49.2 Lymphocytes % 42.8 H D Monocytes % 5.4 Eosinophils % 1.3 Basophils % 1.3 Nucleated RBC % 0 Sodium Cancelled Potassium Cancelled Chloride Cancelled Carbon Dioxide Cancelled Anion Gap Cancelled BUN Cancelled Creatinine Cancelled Est GFR (CKD-EPI)AfAm Cancelled Est GFR (CKD-EPI)NonAf Cancelled Random Glucose Cancelled Calcium Cancelled Phosphorus Magnesium Total Bilirubin Cancelled AST Cancelled ALT Cancelled Alkaline Phosphatase Cancelled Total Protein Cancelled Albumin Cancelled Beta HCG, Quant Cancelled Urine Color Yellow Urine Appearance Turbid Urine pH 7.0 Ur Specific Moore 1.024 Urine Protein Negative Urine Glucose (UA) Negative Urine Ketones Negative Urine Blood Trace Urine Nitrite Negative Urine Bilirubin Negative Urine Urobilinogen 1.0 Ur Leukocyte Esterase Negative Urine WBC (Auto) 2 Urine RBC (Auto) 2 Urine Casts (Auto) 1 U Epithel Cells (Auto) 2.0 Urine Bacteria (Auto) 51.4 Urine HCG, Qual Blood Type Antibody Screen 10/13/19 10/13/19 10/13/19 21:05 22:29 22:29 WBC RBC Hgb Hct MCV MCH MCHC RDW Plt Count MPV Absolute Neuts (auto) Neutrophils % Lymphocytes % Monocytes % Eosinophils % Basophils % Nucleated RBC % Sodium Cancelled Potassium Cancelled Chloride Cancelled Carbon Dioxide Cancelled Anion Gap Cancelled BUN Cancelled Creatinine Cancelled Est GFR (CKD-EPI)AfAm Cancelled Est GFR (CKD-EPI)NonAf Cancelled Random Glucose Cancelled Calcium Cancelled Phosphorus Magnesium Total Bilirubin Cancelled AST Cancelled ALT Cancelled Alkaline Phosphatase Cancelled Total Protein Cancelled Albumin Cancelled Beta HCG, Quant Cancelled Urine Color Urine Appearance Urine pH Ur Specific Moore Urine Protein Urine Glucose (UA) Urine Ketones Urine Blood Urine Nitrite Urine Bilirubin Urine Urobilinogen Ur Leukocyte Esterase Urine WBC (Auto) Urine RBC (Auto) Urine Casts (Auto) U Epithel Cells (Auto) Urine Bacteria (Auto) Urine HCG, Qual Positive Blood Type O POSITIVE Antibody Screen Negative 10/14/19 00:05 WBC RBC Hgb Hct MCV MCH MCHC RDW Plt Count MPV Absolute Neuts (auto) Neutrophils % Lymphocytes % Monocytes % Eosinophils % Basophils % Nucleated RBC % Sodium 143 Potassium 4.0 Chloride 115 H Carbon Dioxide 20 L Anion Gap 7 L BUN 13.5 Creatinine 0.6 Est GFR (CKD-EPI)AfAm 140.77 Est GFR (CKD-EPI)NonAf 121.46 Random Glucose 76 Calcium 7.2 L Phosphorus 3.7 Magnesium 1.5 L Total Bilirubin 0.4 AST 22 ALT 17 Alkaline Phosphatase 41 L Total Protein 6.2 L Albumin 2.9 L Beta HCG, Quant 7233.0 Urine Color Urine Appearance Urine pH Ur Specific Moore Urine Protein Urine Glucose (UA) Urine Ketones Urine Blood Urine Nitrite Urine Bilirubin Urine Urobilinogen Ur Leukocyte Esterase Urine WBC (Auto) Urine RBC (Auto) Urine Casts (Auto) U Epithel Cells (Auto) Urine Bacteria (Auto) Urine HCG, Qual Blood Type Antibody Screen b-hcg was 7233. Patient understood the need to follow up with OBGYN for expectant management of the fetus. Patient agreed to the plan. Patient was discharged Discharge - Discharge Information Problems reviewed: Yes Clinical Impression/Diagnosis: Condition: Stable Disposition: HOME - Admission No - Follow up/Referral Referrals: Alonzo Middleton MD [Staff Physician] - Freddy Woods MD [Staff Physician] - - Patient Discharge Instructions Patient Printed Discharge Instructions: DI for Miscarriage Additional Instructions: You were seen with vaginal bleeding. Your imaging is concerning for a failed . It is very important that you follow up with OBGYN. The numbers are included in this paperwork. Additionally, follow up with your primary care doctor within one week. Return to the ED if you develop worsening symptoms. - Post Discharge Activity
[2019-10-14] MEDS ORDERED: MAGNESIUM OXIDE 400 MG TABLET (FP) ONE (02:17)
[2019-10-14 03:17] VITALS: BP 119/64
== END 2019-10-14 03:16 | disposition home or self-care (01) ==
LOC: JER 19:00
PROC: 3E033NZ Introduction of Analgesics, Hypnotics, Sedatives into Peripheral Vein, Percutaneous Approach (ICD-10-PCS; principal; 2019-10-13)
PROC: 3E033GC Introduction of Other Therapeutic Substance into Peripheral Vein, Percutaneous Approach (ICD-10-PCS; 2019-10-13)
DX: O26.891 Other specified pregnancy related conditions, first trimester (principal); O20.8 Other hemorrhage in early pregnancy; Z3A.01 Less than 8 weeks gestation of pregnancy
CPT/HCPCS: 36415; 76817-TC; 80053; 81003; 83735; 84100; 84702; 84703; 85025; 86850; 86900; 86901; 87077; 87086; 99285-25; J0131